=== PATIENT | female | born 1970 | race American Indian/Alaskan Native ===

== ENCOUNTER 2021-01-19 08:57 | Day surgery (SDC) | payer BC ==
[~2021-01-19 08:57] MED LIST: SODIUM CHLORIDE 0.9% 1000 ML 1,000 ML IV SCH
--- NOTE | 2021-01-19 10:07 | Anesthesia Consultation ---
Anesthesia Consult and Med Hx Date of service: 01/19/21 - Airway Anesthetic Teeth Evaluation: Bridges ( Upper front) ROM Head & Neck: Adequate Mental/Hyoid Distance: Adequate Mallampati Class: Class II Intubation Access Assessment: Probably Good - Pulmonary Exam CTA: Yes - Pre-Operative Health Status ASA Pre-Surgery Classification: ASA2 Proposed Anesthetic Plan: MAC - Pulmonary Hx Smoking: No Hx Asthma: No Hx Respiratory Symptoms: No Hx Sleep Apnea: No - Cardiovascular System Hx Hypertension: No Hx Coronary Artery Disease: No Hx Heart Attack/AMI: No Hx Angina: No Hx Cardia Arrhythmia: No - Central Nervous System Hx Neuromuscular Disorder: No Hx Seizures: No Hx Psychiatric Problems: No - Gastrointestinal Hx Ulcer: No Hx Gastroesophageal Reflux Disease: No - Endocrine Hx Renal Disease: No Hx Liver Disease: No Hx Insulin Dependent Diabetes: No Hx Non-Insulin Dependent Diabetes: No Hx Thyroid Disease: Yes (Graves Disease) Hx Hyperthyroidism: Yes - Other Systems Hx Alcohol Use: No Hx Substance Use: No Hx Obesity: No - Additional Comments Anesthesia Medical History Comments: Patient denies previous anesthesia complications
--- NOTE | 2021-01-19 10:09 | Anesthesia Day of Surgery ---
Anesthesia Day of Surgery - Day of Surgery Patient Examined: Yes Patient H&P Reviewed: Yes Patient is NPO: Yes Beta Blockers: No Cardiac Clearance: No Pulmonary Clearance: No Neri's Test: N/A
[2021-01-19] MEDS ORDERED: propofoL 200 MG/20 ML VIAL IV ONE ×2 (10:12→10:30)
--- NOTE | 2021-01-19 11:10 | Procedure Note ---
Date of procedure: 01/19/21 Pre-op diagnosis: GERD/ Abdominal Pain/ Colon Polyp Screening Post-op diagnosis: other (Mild to Moderate, Erosive Esophagitis/Gastritis/Small,Hiatal Hernia/ R/O Eosinophilic Esophagitis/ R/O Celiac Disease/No Colon Polyps/ sigmoid Colitis/ Sigmoid Diverticular Disease/ Minor,Internal Hemorrhoids) Procedure: EGD with Biopsy and Colonoscopy with Biopsy Anesthesia: [facility] Surgeon: FRANK STEELE Estimated blood loss: minimal Pathology: list Specimen disposition: to lab Condition: stable Disposition: same day (Treat with PPI; avoid aspirin and NSAID for 5 days, otherwise resume home medication and follow up in 1 to 2 weeks.)
--- NOTE | 2021-01-19 11:35 | Operative Report ---
PROCEDURE: Esophagogastroduodenoscopy with biopsy. INDICATIONS: This is a 50-year-old -Citizen Of [place] female who has been complaining of some GERD symptoms and abdominal pain. EGD was done to make sure there was not any significant upper GI pathology present. DESCRIPTION OF PROCEDURE: The procedure was done after getting informed consent with MAC anesthesia. Instrument was passed through the hypopharynx into the esophagus, which showed [id number] erosive esophagitis. Biopsy was done from the distal esophagus as well as the mid esophagus to rule out for eosinophilic esophagitis. The biopsy from the distal esophagus was to assess for the severity of the erosive esophagitis. The stomach showed a small hiatal hernia. On the retroverted view, the stomach showed antral erosion as well as gastritis. Biopsy was done from the gastric antrum and the gastric body and angular incisura. The pylorus was patent. The duodenum in the first and the second portion appeared normal. Biopsy was done from the second part to rule out for possible celiac disease. There was minimal bleeding associated with the procedure. No complications associated with the procedure. ASSESSMENT: Gastroesophageal reflux disease symptoms, abdominal pain, [id number] erosive esophagitis, rule out eosinophilic esophagitis, gastritis, gastric erosion, rule out celiac disease, small hiatal hernia. PLAN: To treat the patient with PPI and have the patient avoid aspirin and aspirin-related products for the next few days and to do a colonoscopy for further assessment as part of colon polyp screening since the patient has a family history of cancer. The procedure was done in the GI lab with assistance of the GI lab team, which included Sofi DOMINGO; Milo dowling and with assistance of anesthesia. JOB# [id number] HANNAH/CHIN
--- NOTE | 2021-01-19 12:02 | Post Anesthesia Evaluation ---
- Post Anesthesia Evaluation Patient Participated: Yes Airway Patent: Yes Stable Respiratory Function: Yes Nausea/Vomiting: No Temp > 96.8F: Yes Pain Manageable: Yes Adequeate Hydration: Yes Anesthesia Complications: No
--- NOTE | 2021-01-19 12:35 | Operative Report ---
PROCEDURE: Colonoscopy with biopsy. INDICATIONS: This is a 50-year-old female who had an EGD done prior to the colonoscopy, which showed [id number] erosive esophagitis, gastritis as well as gastric erosion and a small hiatal hernia. Colonoscopy was done as part of colon polyp screening. The patient does give a family history of cancer. DESCRIPTION OF PROCEDURE: Initial rectal exam was unremarkable. Instrument was passed through the rectum, but could not be passed through the sigmoid because of some narrowing there. There were also some areas of ulceration in that area, possibly secondary to sigmoid diverticulitis. The scope was changed. A pediatric scope was used and then it was passed with relative ease through the rectum and onto the cecum, which was identified with ileocecal valve and the appendiceal orifice. Visualization was fair to good. Cecum, ascending colon, transverse colon showed normal mucosa. The descending colon appeared normal. There were scattered diverticula noted in the sigmoid colon and an area of narrowing with some areas of ulceration noted there as well. Photodocumentation and biopsies were done from this ulcerated area and the rectum showed some minor internal hemorrhoid with relative to no bleeding. ASSESSMENT: Colon polyp screening, no colon polyps noted ____ possible colitis or sigmoid diverticulitis noted in the sigmoid area, presence of diverticula in the sigmoid and minor internal hemorrhoid. PLAN: To wait for the biopsy results. Treat the patient with PPI because of the EGD findings of esophagitis and gastritis, otherwise avoid aspirin and aspirin-related products, but resume home medication and follow up in the office in 1-2 weeks' time. Further treatment adjustment will be according to the biopsy findings. Procedure was done in the GI lab with assistance of the GI lab team, which included Sofi DOMINGO; Milo dowling and with assistance of anesthesia. JOB# [id number] HANNAH/CHIN
[2021-01-19 19:09] VITALS: BP 122/58
== END 2021-01-19 08:58 | disposition home or self-care (01) ==
LOC: GIO 08:57
DX: R10.9 Unspecified abdominal pain (principal); K21.00 Gastro-esophageal reflux disease with esophagitis, without bleeding; K64.8 Other hemorrhoids; K57.30 Diverticulosis of large intestine without perforation or abscess without bleeding; K29.70 Gastritis, unspecified, without bleeding; K63.89 Other specified diseases of intestine; K44.9 Diaphragmatic hernia without obstruction or gangrene; E05.90 Thyrotoxicosis, unspecified without thyrotoxic crisis or storm; Z80.0 Family history of malignant neoplasm of digestive organs; Z79.899 Other long term (current) drug therapy
CPT/HCPCS: 43239; 45380; 88305; 88342; J2704; J7030